=== PATIENT | male | born 1995 | race Caucasian/White ===

== ENCOUNTER 2023-10-14 21:10 | Emergency (ER) | payer OTHER ==
[~2023-10-14] VITALS: Ht 193 cm; Wt 120.8 kg
[2023-10-14 21:12] VITALS: BP 144/99; TEMP 98.6; O2SAT 97
[2023-10-14] MEDS: LIDOCAINE 1% MDV 20ML VIAL SC ONE (22:00)
[2023-10-14] MEDS ORDERED: BACI500O8 TOP (22:29)
[2023-10-14] MEDS: NEOSPORIN OINT 0.9 GM PKT TOP ONE (22:37)
== END 2023-10-14 22:50 | disposition home or self-care (01) ==
LOC: M ED 21:10
DX: S61.012A Laceration without foreign body of left thumb without damage to nail, initial encounter (principal); W26.0XXA Contact with knife, initial encounter; Y92.009 Unspecified place in unspecified non-institutional (private) residence as the place of occurrence of the external cause; Y93.9 Activity, unspecified; Y99.9 Unspecified external cause status; Z79.2 Long term (current) use of antibiotics

== ENCOUNTER 2025-05-08 08:40 | Emergency (ER) | payer OTHER ==
[~2025-05-08] VITALS: Ht 193 cm; Wt 123.8 kg
[~2025-05-08 08:40] MED LIST: BACI500O8 TOP
[2025-05-08 10:45] LABS: BASO # 0.1 10^3/uL (0.0-0.2); BASO % 0.9 % (0.0-1.0); EOS # 0.4 10^3/uL (0.0-0.5); EOS % 5.4 % (0.0-3.0); LYMPH # 0.9 10^3/uL (1.5-5.0); LYMPH % 11.0 % (24.0-44.0); MONO # 0.9 10^3/uL (0.0-0.8); MONO % 10.8 % (2.0-8.0); NEUTROPHILS # 5.8 10^3/uL (1.5-8.5); NEUTROPHILS % 71.7 % (36.0-66.0); PLATELET COUNT, AUTOMATED 184 10^3/uL (150-450)
[2025-05-08] MEDS: NS (Normal Saline) 0.9% 1,000 ML IV ONE (10:45)
[2025-05-08] MEDS ORDERED: ISOVUE-370 76% 100 ML VIAL As Ordered ONE (11:02)
[2025-05-08 11:22] LABS: CALCIUM LEVEL 9.2 MG/DL (8.5-10.1); CARBON DIOXIDE LEVEL 30.3 MMOL/L (20-31); CHLORIDE LEVEL 105 MMOL/L (98-107); CPK CREATINE PHOSPHOKINASE 92 U/L (46-171); CREATININE FOR GFR 0.98 MG/DL (0.70-1.30); GLOMERULAR FILTRATION RATE > 90.0 (>60); POTASSIUM SERUM 5.0 MMOL/L (3.5-5.1); SODIUM LEVEL 144 MMOL/L (136-145)
[2025-05-08 11:23] LABS: CK-MB VALUE MASS 1.0 NG/ML (<3.6); FREE T4 1.12 NG/DL (0.89-1.76); MB/CK RELATIVE INDEX 1.08 (< OR =4)
[2025-05-08 12:38] LABS: CK-MB VALUE MASS < 1.0 NG/ML (<3.6); CPK CREATINE PHOSPHOKINASE 68 U/L (46-171)
[2025-05-08 12:57] VITALS: BP 124/82; TEMP 96.7; O2SAT 99
[2025-05-08] MEDS ORDERED: BENZ200C70 PO (13:16)
[2025-05-08] MEDS ORDERED: MUCI1TAB18 PO (13:16)
== END 2025-05-08 13:28 | disposition home or self-care (01) ==
LOC: M ED 08:40 → EDBD 08:40 → M ED 13:28
DX: J06.9 Acute upper respiratory infection, unspecified (principal); B34.8 Other viral infections of unspecified site
CPT/HCPCS: 36415; 71275; 80047; 80048; 82550; 82553; 83880; 84439; 84443; 84484; 85025; 87486; 87581; 87633; 87798; 87880; 93005; 94760; 96360; 96361; 99284; Q9967